=== PATIENT | female | born 1965 | race Caucasian/White ===

== ENCOUNTER → 2018-04-18 16:10 | Outpatient (CLI) | payer OTHER, SELFPAY ==
[2018-04-18 07:24] LABS: ALB/GLOB Ratio 1.1 RATIO (0.9-2.4); AST(SGOT) 17 U/L (15-37); Alanine Aminotransfer ALT/SGPT 21 U/L (13-56); Albumin, Serum 3.7 g/dL (3.2-5.0); Alkaline Phosphatase 72 U/L (45-117); Anion Gap 9 (5-15); BUN 17 mg/dL (7-18); BUN/Creat Ratio 20.4 RATIO (10-20); Calcium,Total 8.4 mg/dL (8.5-10.1); Chloride 109 mmol/L (98-107); Cholesterol 196 mg/dL (200); Creatinine, Serum 0.84 mg/dL (0.55-1.02); EST Glomerular Filtration Rate 76 mL/min (>60); Est Glom Filt Rate - Afr Amer 92 mL/min (>60); Globulin 3.4 g/dL (2.2-4.2); Glucose 92 mg/dL (74-106); High Density Lipoprotein 68 mg/dL; Potassium 4.1 mmol/L (3.5-5.1); Protein, Total 7.1 g/dL (6.4-8.2); Sodium Level 142 mmol/L (136-145); Triglycerides 69 mg/dL; Very Low Density Lipoprotein 14 mg/dL (5-40)
--- OUTSIDE RECORDS SUMMARY | 2018-06-30 00:10 | XMS RPT_ITS ---
:1965 Author Organization OHIP Care Team Providers Name Role Phone Chavo Green Attending Unavailable LOKI OVALLES Referring Unavailable LOKI OVALLES Primary Care Unavailable Neena Pritchett Attending Unavailable Neena Pritchett Referring Unavailable LOKI OVALLES Primary Care Unavailable PROBLEMS PROBLEMS DATE TYPE CONDITION / CODE ATTENDING STATUS SOURCE 05/06/2018 Unknown Z00.00 - Neena Pritchett Active [facility] Encounter for [facility] medical Repository examination without abnormal findings / Z00.00(ICD-10) PROCEDURES PROCEDURES No Procedure Records FoundRESULTS RESULTS COMPREHENSIVE METABOLIC Collected: 04/18/2018 Status: F Source: [facility]MUKH PROFIL 6:45 AM [facility] RE[facility] Order Comment: PT DRAWN ON ICU FLOOR. TYPE CODE TESTS RESULT OUT OF RANGE REFERENCE UNITS LAB L501.0100 74-106 mg/dL Normal GLU 92 Result Comment: Please note revised GLUCOSE reference range effective 2017. LAB L501.1000 7-18 mg/dL Normal BUN 17 LAB L501.1100 0.55-1.02 mg/dL Normal CREAT,SERUM 0.84 Result Comment: The validity of the calculated GFR AND GFRAA in patients over 70 years has not been determined. Clinical correlation is essential. LAB L501.1110 >60 mL/min Normal EST GFR 76 Result Comment: Non- GFR Calc LAB L501.1115 >60 mL/min Normal EST GFR - AA 92 Result Comment: GFR Calc LAB L501.1300 10-20 RATIO High BUN/CRE 20.4 LAB L501.1500 6.4-8.2 g/dL T Normal PROT 7.1 LAB L501.1800 3.2-5.0 g/dL Normal ALB 3.7 LAB L501.1950 2.2-4.2 g/dL Normal GLOB 3.4 LAB L501.2000 0.9-2.4 RATIO Normal A/G 1.1 LAB L501.2200 8.5-10.1 mg/dL Low CA 8.4 LAB L501.4100 15-37 U/L Normal AST 17 LAB L501.4305 45-117 U/L Normal ALK P 72 LAB L501.4405 13-56 U/L Normal ALT 21 LAB L501.4600 0.20-1.00 mg/dL T Normal BILI 0.30 LAB L501.5300 136-145 mmol/L NA Normal 142 LAB L501.5600 3.5-5.1 mmol/L K Normal 4.1 LAB L501.5900 98-107 mmol/L High CL 109 LAB L501.6100 21.0-32.0 mmol/L Normal CO2 24.0 LAB L501.6200 5-15 Normal GAP 9 Performed By: #### L500.4050, L500.4100 #### [facility] [address] [place], [place], [address] LIPID PROFILE Collected: 04/18/2018 Status: F Source: [place] 6:45 AM [facility] RE[facility] Order Comment: PT DRAWN ON ICU FLOOR. TYPE CODE TESTS RESULT OUT OF RANGE REFERENCE UNITS LAB L501.4900 200 mg/dL Normal CHOL 196 Result Comment: <200 mg/dL Desirable 200-240 mg/dL Borderline >240 mg/dL High Risk LAB L501.5000 mg/dL Normal TRIG 69 Result Comment: The drugs N-Acetylcysteine and Metamizole may falsely depress this assay. Serum Triglycerides Reference Interval Normal <150 mg/dL Borderline high 150 - 199 mg/dL High 200 - 499 mg/dL Very High > or = 500 mg/dL LAB L501.6400 mg/dL Normal HDL 68 Result Comment: The drugs N-Acetylcysteine and Metamizole may falsely depress this assay. Reference Range HDL <40 mg/dL Low HDL Cholesterol HDL >or= 60 mg/dL High HDL Cholesterol LAB L501.6500 0-130 mg/dL Normal LDL 114 LAB L501.6600 5-40 mg/dL Normal VLDL 14 Performed By: #### L500.4050, L500.4100 #### [facility] [address] [place], [place], [address] URGENT CARE VISIT Observed: 02/13/2018 Status: F Source: [place] REPORT 8:36 AM [facility] [address] [place] [address] [address] [place], [place] [address] OFFICE VISIT Date of Service: 02/12/18 MR#: [id number] Acct: [id number] Name: KEVIN AVENDAÑO Rep #: [id number] : 1965 Provider: Chavo CAMARENA Age/Sex: 52/F Location: [facility] [place] Status: Signed Intake Vital Signs02/12/18 Height 5 ft 2 in Intake Visit Reasons: EAR INFECTION Allergies No Known Allergies Allergy (Verified 04/11/17 12:38) narcotics and benzos Adverse Reaction (Uncoded 02/12/18 16:16) Other Medications escitalopram 5 mg tablet 5 mg PO DAILY 02/12/18 [History Confirmed 02/12/18] losartan 25 mg tablet 25 mg PO DAILY 02/12/18 [History Confirmed 02/12/18] meclizine 25 mg tablet 25 mg PO BID-TID PRN #30 tab 02/12/18 [Rx Confirmed 02/12/18] PFSH Medical History Back pain (Acute) Difficulty balancing (Acute) Seasonal allergies (Acute) HTN (hypertension) (Chronic) Surgical History History of bilateral carpal tunnel release (Acute) History of exploratory laparotomy (Acute) History of laparoscopic cholecystectomy (Acute) History of tubal ligation (Acute) Hx of appendectomy (Acute) Hx of section (Acute) Hx of foot surgery (Acute) Family History Other CAD (coronary artery disease) Hypertension Social History Smoking Status: Never smoker alcohol intake: current alcohol intake frequency: a few times a month Alcohol type: wine HPI HPI Details: KEVIN AVENDAÑO, is a 52 F who presents to the office today for complaint of left ear being full and concern for possible inner ear infection. Patient states that she has had dizziness for the past 24 hours which is similar to when she had an inner ear infection approximately 1 year ago. She states that the dizziness is dependent upon position with sitting up straight being the most comfortable position. She states that as long she sits up straight she has no dizziness however needed her to bring her here today due to that it dizziness. She does report some nausea related to the dizziness however denies any vomiting or diarrhea. She has had no fever, chills, sweats. No ear pain or otorrhea. No other associated symptoms or alleviating/aggravating factors. ROS Const Constitutional: No chills, fever(s), fatigue, abnormal sleep pattern, frequent falls, weakness or headache(s) Eyes Eyes: No blurry vision, change in vision, visual disturbances or tunnel vision ENT ENT: No headache(s) Resp Respiratory: No shortness of breath or chest congestion Cardio Cardiology: No chest pain at rest, chest pain with exertion or shortness of breath Musc Musculoskeletal: No abnormal walking, tingling or numbness Skin Skin: No wounds or lesions Neuro Neurology: Positive for unsteady gait/balance and dizziness; no behavioral changes, confusion, frequent falls, visual disturbances, abnormal walking, abnormal movements, weakness, headache(s), lack of coordination, tingling, fainting or numbness Psych Psychiatric: No behavioral changes, No confusion, No abnormal sleep pattern Endo Endocrine: No fatigue Exam Const General: cooperative, healthy appearing [facility] Head: normocephalic, atraumatic Ears: hearing grossly normal bilaterally Nose: external nose normal Face and sinus: face symmetric, normal facial exam Mouth: oral mucosae normal Throat: posterior oropharynx normal Eyes General: appearance normal, both eyes and all related structures Pupils: PERRL Resp Effort AND Inspection: normal respiratory effort Auscultation: Bilateral: Clear to Auscultation Cardio Palpation: normal PMI Rate: regular rate Rhythm: regular rhythm Skin General: no rashes or lesions noted Neuro General: alert, CN's II-XI intact bilaterally, tone normal Cognition: normal cognition Speech: speech normal Motor: muscle tone normal throughout, strength 5/5 throughout Sensory Exam: no sensory deficits noted Other: Patient unable to change position without feeling nausea and vertigo. Psych Appearance: grossly normal Mental Status: mental status grossly normal Assessment AND Plan Problems 1. Vertigo R42 Status Acute Plan Meclizine as prescribed today. Patient advised to have follow- up with her PCP in the next 5-7 days. Patient advised of potential red flags and when appropriate report to the ED. Patient verbalized understanding of all the above. Medications New: Discontinued: promethazine Discontinued Reason: Pt no 25 mg PO Q6H PRN PRN Nausea Michaelle Zavala longer taking Coding Level of Care Code Off vis,new,level 3 Diagnoses Vertigo R42 02/13/18 0836 <Electronically signed by Chavo CAMARENA> Date Chavo CAMARENA Cosigner Signature: Date (if applicable) CC: ALLERGIES ALLERGIES DATE TYPE / CODE NAME / CODE REACTION SEVERITY SOURCE 02/12/2018 Miscellaneous narcotics and Other Unknown [id number] [place] 04/11/2017 Drug No Known Unknown [facility]mukh Allergy/[id number](S Allergies/F0019 [facility]) 00516(RXNORM) Hospital Repository ENCOUNTERS ENCOUNTERS ADMIT/DISCHARGE ACCOUNT ADMITTING ENCOUNTER LOCATION SOURCE NUMBER CLASS 04/18/2018 [id number] [place] [facility] ing:LAB Repository 02/12/2018/ [id number] Ambulatory BMS[place] [address] [place].NOW [facility] Repository PAYERS PAYERS ENCOUNTER GUARANTOR PAYER SUBSCRIBER SOURCE 04/18/2018 ANÍBAL Castelan Primary Insurance:SHEBA AVENDAÑO6567 KRISTINE [id number] TORRESB: [facility] Number: [id number], [place] [id number] Repository [address]Dnv: (330) Date:3218-28-09LE [phone] () [address] [place] [phone]: 04/18/2018 Secondary NOT GIVENUNK Hasmukh Insurance:SELF PAY [facility] Number: Effective Repository Date:2018-04-17 02/12/2018 Aníbal Primary Insurance:[facility] Aníbal Avendaño[address] [facility] [id number] LenardB: [facility] Number: [id number], [place] [id number] Repository [address]Dej: (330) Date:6831-28-38CR [phone] () [address], [place] [address]ST: 02/12/2018 Secondary NOT GIVENUNK [place] Insurance:SELF PAY [facility] Number: Effective Repository Date:2018-02-12
== END ==
PROVIDERS: Family Provider Family Medicine; PCP Family Medicine; Referring Provider Nurse Practitioner Family; Visit Provider Nurse Practitioner Family
DX: Z00.00 Encounter for general adult medical examination without abnormal findings (principal)
CPT/HCPCS: 80053; 80061

== ENCOUNTER 2018-06-13 18:12 | Emergency (ER) | payer OTHER, SELFPAY ==
[2018-06-13 18:13] VITALS: BP 130/82; PULSE 90; RESP 16; TEMP 36.4; O2SAT 99; BMI 27.6
[2018-06-13] MEDS: Amox/Clavulanate 875 MG Tablet PO (19:09)
--- NOTE | 2018-06-13 19:44 | ED.DCSUM_ITS ---
- ER Visit Summary Date of Service: 06/13/18 Chief Complaint: Left hand dog bite History of Present Illness: The patient is a 53 F who is right-hand dominant. She was bitten by a small dog that she is dog sitting on the left hand after the dog had escaped from the house. She has multiple small lacerations of the left hand and fingers. Tetanus is up-to-date. Physical Examination: Vital signs unremarkable. Patient sitting in a bedside chair. Left upper extremity examination reveals multiple small puncture wounds to left hand. There is a 2 cm flap laceration of the left fourth finger at the PIP joint. Full range of motion is noted with normal sensation distally. Test Results: [] Emergency Department Course and Treatment: Patient is given p.o. Augmentin. The laceration on the left fourth finger will require some suture. Digital block is performed with 3 cc of 1% lidocaine. Wound is thoroughly cleansed and irrigated. 3 simple interrupted sutures of 5-0 nylon are placed for approximation. I did discuss with the patient that we do not suture these tightly so as not to worsen infection. She will be given 3 days of Augmentin at home. Treatment Plan: [] Disposition: Discharge Impression: 1. Dog bite left hand 2. Left fourth finger laceration status post suture This note was generated with [employer] dictation software. It may contain incorrect words, spelling, and punctuation that were not noted in review of the chart prior to signing ED Disposition - Plan for ED Patient: Chief Complaint: Bite Referrals: Alejo Verde MD [Primary Care Provider] -
--- NOTE | 2018-06-13 19:44 | ED.DEP ---
ED Disposition - Plan for ED Patient: Disposition: Home or Assisted Living Chief Complaint: Bite Instructions: ED Bite Dog Prescriptions: Amox/Clavulanate Tablet [Augmentin Tablet] 875 mg PO Q12H #6 tablet Referrals: Alejo Verde MD [Primary Care Provider] - 7 Days for suture removal
== END 2018-06-13 20:07 | disposition home or self-care (01) ==
PROVIDERS: Emergency Provider Emergency Medicine; Family Provider Family Medicine; PCP Family Medicine
DX: S60.475A Other superficial bite of left ring finger, initial encounter (principal); S60.572A Other superficial bite of hand of left hand, initial encounter; W54.0XXA Bitten by dog, initial encounter; Y93.89 Activity, other specified; Y92.009 Unspecified place in unspecified non-institutional (private) residence as the place of occurrence of the external cause; Y99.8 Other external cause status; I10 Essential (primary) hypertension
CPT/HCPCS: 12001; 99283

== ENCOUNTER → 2019-01-09 | Outpatient (CLI) | payer OTHER, SELFPAY ==
[2019-01-04 13:07] VITALS: BMI 27.6
== END | disposition home or self-care (01) ==
PROVIDERS: Family Provider Family Medicine; PCP Family Medicine; Referring Provider Internal Medicine; Visit Provider Internal Medicine
DX: J32.9 Chronic sinusitis, unspecified (principal)
CPT/HCPCS: 87070; 87077; 87186; 87205

== ENCOUNTER → 2019-03-29 06:27 | Outpatient (CLI) | payer OTHER, SELFPAY ==
[2019-01-04 13:07] VITALS: BMI 27.6
[2019-03-29 08:27] LABS: Hematocrit 40.4 % (37-47); Mean Corp Hgb Conc 32.2 g/dL (32-36); Mean Corpuscular Hgb 30.3 pg (27.0-32.0); Mean Corpuscular Volume 94.2 fL (81-99); Mean Platelet Vol. 10.8 fl (6.2-12.0); Platelet Count 238 K/mm3 (150-450); RBC Distribution Width CV 13.1 % (11.6-14.6); Red Blood Count 4.29 M/mm3 (4.2-5.4); White Blood Count 4.6 K/mm3 (4.4-11.0)
[2019-03-29 09:07] LABS: ALB/GLOB Ratio 1.1 RATIO (0.9-2.4); AST(SGOT) 16 U/L (15-37); Alanine Aminotransfer ALT/SGPT 26 U/L (13-56); Albumin, Serum 3.8 g/dL (3.2-5.0); Alkaline Phosphatase 64 U/L (45-117); Anion Gap 5 (5-15); BUN 15 mg/dL (7-18); BUN/Creat Ratio 15.4 RATIO (10-20); Calcium,Total 8.4 mg/dL (8.5-10.1); Chloride 106 mmol/L (98-107); Cholesterol 214 mg/dL (200); Creatinine, Serum 0.97 mg/dL (0.55-1.02); EST Glomerular Filtration Rate 64 mL/min (>60); Est Glom Filt Rate - Afr Amer 77 mL/min (>60); Globulin 3.4 g/dL (2.2-4.2); Glucose 81 mg/dL (74-106); High Density Lipoprotein 65 mg/dL; Potassium 3.8 mmol/L (3.5-5.1); Protein, Total 7.2 g/dL (6.4-8.2); Sodium Level 139 mmol/L (136-145); Thyroid Stim Hormone (TSH) 3.19 uIU/mL (0.358-3.74); Triglycerides 79 mg/dL; Very Low Density Lipoprotein 16 mg/dL (5-40)
== END ==
PROVIDERS: Family Provider Family Medicine; PCP Family Medicine; Referring Provider Nurse Practitioner Family; Visit Provider Nurse Practitioner Family
DX: Z00.00 Encounter for general adult medical examination without abnormal findings (principal); R63.5 Abnormal weight gain
CPT/HCPCS: 36415; 80053; 80061; 84443; 85027

== ENCOUNTER → 2019-04-08 06:31 | Outpatient (CLI) | payer OTHER, SELFPAY ==
[2019-01-04 13:07] VITALS: BMI 27.6
--- NOTE | 2019-04-08 10:30 | STRESSREP ---
Stress Test Report Exercise myocardial perfusion stress test. 54-year-old lady with a history of hypertension and chest pain. Stress protocol: Resting EKG demonstrates normal sinus rhythm with a rate of 67 bpm normal intervals are noted resting blood pressures 122/84 mmHg. The patient exercised according to regular Terell protocol for total duration of 7 minutes and 15 seconds. The maximum heart rate attained was 166 bpm which was 99% of maximum predicted heart rate the maximum workload was 8.9 metabolic equivalents. The patient completed 1 minute and 15 seconds into stage III of the Terell protocol. At rest there were no ST or T wave changes noted suggest ischemia peak exercise upsloping ST changes were noted with no meet the criteria for ischemia. No clinical angina was noted. The resting blood pressures 122/84 with a peak blood pressure 142/88. Myocardial perfusion protocol. 11.0 mCi of technetium 99m sestamibi was injected at rest. The patient exercised according to regular Terell protocol for 7 minutes and 15 seconds at peak exercise 35.0 mCi of technetium 99m sestamibi was injected stress images were obtained stress and rest images are reconstructed in comparing the short axis vertical and horizontal long axis. Gated images were also obtained Perfusion SPECT analysis: Review of the stress images demonstrate normal uptake of tracer noted in all areas of the myocardium. The resting images similar demonstrate normal uptake of tracer noted in all areas of myocardium no areas of reversibility are noted suggest ischemia no previous infarct is noted. Gated SPECT analysis: The gated ejection fraction is noted to be 87%. Conclusion: Normal exercise myocardial perfusion stress test at a moderate to high workload. Good functional capacity. Preserved ejection fraction.
== END ==
PROVIDERS: Family Provider Family Medicine; PCP Family Medicine; Referring Provider Nurse Practitioner Family; Visit Provider Nurse Practitioner Family
DX: R06.00 Dyspnea, unspecified (principal); R07.89 Other chest pain
CPT/HCPCS: 78452; 93017; A9500; A4216

== ENCOUNTER → 2019-04-22 06:34 | Outpatient (CLI) | payer OTHER, SELFPAY ==
[2019-01-04 13:07] VITALS: BMI 27.6
--- NOTE | 2019-04-22 06:35 | CT_ITS ---
STUDY: CT CHEST WITHOUT CONTRAST REASON FOR EXAM: Female, 54 years old. Intermittent chest pressure and shortness of breath. RADIATION DOSAGE (If Supplied By Facility): CTDIvol = ( 7.74 ) mGy, DLP = ( 282.27 ) mGycm TECHNIQUE: Transaxial imaging was performed without the administration of intravenous contrast material. Multiplanar coronal and sagittal images were reformatted. Individualized dose optimization techniques were used for this CT. COMPARISON: None. FINDINGS: The lungs are normal. There is no demonstrated pleural abnormality. There is a small pericardial effusion. Normal mediastinum. Normal hilar regions. Normal unenhanced pulmonary arteries. Normal aorta arch and descending thoracic aorta. Normal osseous structures. Small hiatal hernia. Scattered small hepatic cysts. Status post cholecystectomy. CT/Chest without Contrast IMPRESSION: Small pericardial effusion. Electronically Signed: Jung Manrique, at 9:11 EST , Service support ,
== END ==
PROVIDERS: Family Provider Family Medicine; PCP Family Medicine; Referring Provider Nurse Practitioner Family; Visit Provider Nurse Practitioner Family
DX: I31.3 Pericardial effusion (noninflammatory) (principal); R07.9 Chest pain, unspecified
CPT/HCPCS: 71250

== ENCOUNTER → 2019-07-17 09:54 | Outpatient (CLI) | payer OTHER, SELFPAY ==
[2019-07-04 13:49] VITALS: BMI 27.3
--- NOTE | 2019-07-17 09:55 | ECHOD_ITS ---
Reason For Study: CHEST PAIN Procedure This was a 2D Doppler, Color Flow transthoracic echocardiogram. The exam was of adequate technical quality. Exam performed in department. Left Ventricle Normal LV size. Left ventricular systolic function is normal. The estimated ejection fraction is 65 %. No evidence for diastolic dysfunction. No regional wall motion abnormalities noted. Right Ventricle Normal RV size. Normal systolic function. Atria Normal left atrium. Normal right atrium. No doppler evidence for ASD. Mitral Valve There is no mitral annular calcification. Normal mitral valve. Trivial mitral valve insufficiency. Tricuspid Valve Normal tricuspid valve. Trivial tricuspid valve insufficiency. Aortic Valve Trisinus/trileaflet aortic valve. Normal aortic valve. Pulmonic Valve The pulmonic valve is not well visualized. Great Vessels Normal sized aortic root. Pericardium/Pleural No pericardial effusion. MMode/2D Measurements & Calculations LVIDd: 3.9 cm IVSd: 0.87 cm Ao root diam: 2.8 cm LVIDs: 2.4 cm LVPWd: 0.90 cm RVDd: 2.8 cm FS: 38.8 % LAV(MOD-bp): 37.8 ml LA A4 area: 14.7 cm2 LA dimension(2D): 2.8 cm LAV(MOD-bp) Indexed: 22.8 ml/m2 LAV(MOD-sp2): 37.7 ml LAV(MOD-sp4): 37.3 ml RA A4 area: 13.4 cm2 Time Measurements MV dec time: 0.16 sec Doppler Measurements & Calculations MV E max long: 112.8 cm/sec Lat Peak E' Long: 10.5 cm/sec Med Peak E' Long: 12.9 cm/sec MV A max logn: 95.0 cm/sec E/E' lat: 10.7 E/E' med: 8.7 MV E/A: 1.2 Ao V2 max: 119.4 cm/sec LV V1 max: 106.1 cm/sec PA V2 max: 89.2 cm/sec Ao max P.7 mmHg LV V1 max P.5 mmHg Interpretation Summary Left ventricular systolic function is normal. The estimated ejection fraction is 65 %. Trivial mitral valve insufficiency. Trivial tricuspid valve insufficiency. No evidence for diastolic dysfunction. Ordering Physician: Calderon Spears Referring Physician: Alejo Verde Performed By: Renuka Rowland, VALERI, RVT
== END ==
PROVIDERS: PCP Family Medicine; Referring Provider Internal Medicine Cardiovascular Disease; Visit Provider Internal Medicine Cardiovascular Disease
DX: I31.3 Pericardial effusion (noninflammatory) (principal); R07.2 Precordial pain; R06.02 Shortness of breath; R00.2 Palpitations; I10 Essential (primary) hypertension
CPT/HCPCS: 93306

== ENCOUNTER → 2019-07-19 12:15 | Outpatient (CLI) | payer OTHER, SELFPAY ==
[2019-07-04 13:49] VITALS: BMI 27.3
[2019-07-19] VITALS (12 sets, daily range): BP systolic 84–131; BP diastolic 40–88; PULSE 56–67; RESP 14–16; O2SAT 98–100; BMI 27.3
--- NOTE | 2019-07-19 12:37 | CT_ITS ---
STUDY: CARDIAC CALCIUM SCORING - CT CHEST REASON FOR EXAM: Female, 54 years old. Pericardial pain, SOB, palpitations. Limited CT Chest over-read ONLY. RADIATION DOSAGE (If Supplied By Facility): CTDIvol = ( 26.03 ) mGy, DLP = (195) mGycm TECHNIQUE: Axial non-enhanced images were acquired through the heart for the sole purpose of measuring coronary artery calcium. Individualized dose optimization techniques were used for this CT. COMPARISON: None. FINDINGS: Total Calcium Score: 10 There is small amount of calcified plaque in the LAD proximally. Cardiac chambers are normal in size and shape. Lungs are clear. IMPRESSION: A Calcium Score of 10 places the patient in the approximate 75th percentile, based on the PIERCE calculator. Mildly elevated future risk of adverse cardiovascular events, estimated at 5-15% over the next 10 years. Cardiovascular risk factor management is advised. Please go to: [email or web address]/input.aspx , for a description of the calculator. Electronically Signed: Shellie Mayfield, at 14:53 EST Tel , Service support , STUDY: Cardiac CTA with IV contrast. REASON FOR EXAM: Female, 54 years old. Pericardial pain, shortness of breath, palpitations. RADIATION DOSAGE (If Supplied By Facility): CTDIvol = ( 26.03 ) mGy, DLP = (885) mGycm TECHNIQUE: Axial non-enhanced images were acquired through the heart for the sole purpose of measuring coronary artery calcium. Individualized dose optimization techniques were used for this CT. COMPARISON: 08 April 2019 FINDINGS: Coronary arteries have normal origins with a right dominant system. There is minimal calcific plaque in the proximal LAD without stenosis. Coronary arteries are patent. Aorta and pulmonary artery are of normal caliber. Left atrial appendage is clear. Cardiac chambers are normal in size and shape. Pericardium is normal. Left ventricular systolic function is normal with ejection fraction of 55-60%. Limited visualized portions of the lungs are clear. There is no pulmonary edema or pleural effusions. There are presumed hepatic cysts, incompletely characterized. Osseous structures are intact. CT/Limited Chest CT w/CCTA IMPRESSION: 1. Patent coronary arteries. 2. Mild coronary atherosclerosis. 3. Normal cardiac anatomy. 4. Normal left ventricular systolic function. 5. Possible hepatic cysts, refer to ultrasonography for confirmation. Please go to: [email or web address]/input.aspx , for a description of the calculator. Electronically Signed: Shellie Mayfield, at 14:57 EST Tel , Service support ,
[2019-07-19] MEDS: Nitroglycerin SL (ED/IMG/CATH) 0.4 MG TABLET SUBLINGUAL (13:04)
--- NOTE | 2019-07-19 13:13 | NURSING ---
IMMEDIATELY POST CARDIAC CTA PT FEELING NAUSEATED AND PASS-OUTY PT KEPT FLAT AND TRANSFERRED TO RADIOLOGY STRETCHER. BP 84/40, HR 57, RESP 16, SPO2 98% ON ROOM AIR. DR. العراقي'S OFFICE CALLED AND DANIEL GLORIA SPOKE WITH DANIEL ANGUIANO AND THEN JUDITH. DANIEL GLORIA DESCRIBED PT'S B/P RISING 5 MINUTES AFTER 84/40 PRESSURE, PT'S B/P READS 97/42, HR 58, RESP 16, SPO2 98%. PT STARTING TO FEEL BETTER.
--- NOTE | 2019-07-19 14:06 | NURSING ---
STANDING BP AT 1355 OF 116/88, PT FEELING MUCH BETTER, ASSISTED WALKING WITH TO RESTROOM. PT FEELS SHE'S ABLE TO GO HOME WITH HER . PT ASSISTED TO VEHICLE VIA WHEELCHAIR BY REYMUNDO OLIVEIRA.
--- NOTE | 2019-07-22 19:53 | CA.SCORE ---
Calcium Scoring Date of Study:: 07/19/19 Coronary Calcium Scoring: High-resolution Computed Tomographic imaging of the chest was performed on 07/19/2019 with particular attention paid to the coronary arteries. Images from the examination were analyzed for the presence and extent of coronary artery calcification , using coronary calcium quantification software. The patient tolerated the procedure well and there were no complications. The results of the coronary calcification analysis are provided below. - Findings Left Main (LM): 0 Left Anterior Descending (LAD): 0 Left Circumflex (LCX): 0 Right Coronary Artery (RCA): 0 Total Agatston Score: 0 Percentile Ranking: Percentile rankin%: According to pre-published reference tables 50% of the people of the same gender/similar age had the same/lower scores Calcium Scoring Interpretation: 0 No identifiable atherosclerotic plaque. Very low cardiovascular disease risk. <5% chance of presence coronary artery disease A Negative Examination 1-10 Minimal Plaque burden. Significant coronary artery disease very unlikely. 11-100 Mild plaque burden. Likely mild or minimal coronary atherosclerosis. 101-400 Moderate plaque burden Moderate non-obstructive coronary artery disease highly likely. Over 400 Extensive plaque burden. High likelihood of at least one significant coronary stenosis (>50% diameter) Calcium Score: 0 Negative Examination - Continue cardiovascular risk factor evaluation and care as deemed appropriate
--- NOTE | 2019-07-22 19:55 | CCTA_ITS ---
CCTA w/Cont Coronary Arteries Date of Study:: 07/19/19 Chest pain Consent:: Per patient The patient underwent high-resolution CT imaging of the chest on 07-19-2019 with attention to the coronary arteries. The images were subsequently analyzed for the presence and extent of coronary artery calcification using coronary calcium quantification software. The patient was reported as tolerating the procedure well with no obvious complications. LEFT MAIN CORONARY ARTERY: The left main coronary artery appears to be a large vessel giving rise to the left anterior descending and left circumflex coronary arteries. The left main coronary artery system appears to be patent and it does not appear to demonstrate any angiographically significant appearing disease. LEFT ANTERIOR DESCENDING CORONARY ARTERY: The left anterior descending coronary artery appears to be a large vessel giving rise to septal perforators and diagonal branches. The LAD system appears to be patent and does not appear to demonstrate any angiographically significant appearing disease. LEFT CIRCUMFLEX CORONARY ARTERY: The left circumflex coronary artery appears to be a large vessel giving rise to obtuse marginal branches. The LCx system appears to be patent and does not appear to demonstrate any angiographically significant appearing disease. RIGHT CORONARY ARTERY: The right coronary artery appears to be a large dominant vessel. It appears to be patent and does not appear to demonstrate any angiographically significant appearing disease. THORACIC AORTA: The thoracic aorta appears to be patent with no obvious angiographically significant appearing disease. PULMONARY ARTERY: The main pulmonary artery and right and left pulmonary arteries appear to be patent with no obvious filling defects. LEFT ATRIUM/APPENDAGE: The left atrial appendage not appear to demonstrate any obvious filling defects. MITRAL VALVE: The mitral valve appears to be a bileaflet valve. AORTIC VALVE: The aortic valve appears to be a trileaflet valve. LEFT VENTRICLE: The left ventricle demonstrates grossly normal left ventricular size, wall mot ion, and systolic function with a reported LVEF of 54%. CORONARY CALCIUM SCORE: The coronary calcium score is reported at 0. Based upon pre-published reference tables a coronary calcium score of 0 would be indicative of a very low cardiovascular risk and a less than 5% chance of coronary artery disease. This note was generated using a voice recognition system and there may be incorrect words, spelling or punctuation that were not noted when reviewing the office note prior to saving.
== END ==
LOC: CT 12:15
PROVIDERS: PCP Family Medicine; Referring Provider Internal Medicine Cardiovascular Disease; Visit Provider Internal Medicine Cardiovascular Disease
DX: R07.2 Precordial pain (principal)
CPT/HCPCS: 75571; 75574; 76380; Q9967; A4216

== ENCOUNTER 2020-07-22 16:48 | Outpatient (RCR) | payer OTHER, SELFPAY ==
[2020-03-07 12:26] VITALS: BMI 26.9
== END 2020-08-02 23:59 ==
LOC: EMPH 16:48
PROVIDERS: PCP Family Medicine; Referring Provider Family Medicine Geriatric Medicine; Visit Provider Family Medicine Geriatric Medicine
DX: Z03.818 Encounter for observation for suspected exposure to other biological agents ruled out (principal)
CPT/HCPCS: 87426

== ENCOUNTER → 2021-03-11 05:39 | Outpatient (CLI) | payer OTHER, SELFPAY ==
[2021-03-11 09:54] LABS: Hematocrit 40.1 % (37-47); Mean Corp Hgb Conc 32.4 g/dL (32-36); Mean Corpuscular Hgb 30.4 pg (27.0-32.0); Mean Corpuscular Volume 93.7 fL (81-99); Mean Platelet Vol. 10.9 fl (6.2-12.0); Platelet Count 235 K/mm3 (150-450); RBC Distribution Width CV 13.1 % (11.6-14.6); RBC Distribution Width SD 44.9 fl (35.1-43.9); Red Blood Count 4.28 M/mm3 (4.2-5.4); White Blood Count 5.8 K/mm3 (4.4-11.0)
[2021-03-11 10:02] LABS: Vitamin D,25 Hydroxy 26.4 ng/mL
[2021-03-11 10:41] LABS: ALB/GLOB Ratio 1.1 RATIO (0.9-2.4); AST(SGOT) 18 U/L (15-37); Alanine Aminotransfer ALT/SGPT 20 U/L (13-56); Albumin, Serum 3.8 g/dL (3.2-5.0); Alkaline Phosphatase 76 U/L (45-117); Anion Gap 7 (5-15); BUN 18 mg/dL (7-18); Calcium,Total 9.1 mg/dL (8.5-10.1); Chloride 106 mmol/L (98-107); Cholesterol 205 mg/dL (200); EST Glomerular Filtration Rate 69 mL/min (>60); Est Glom Filt Rate - Afr Amer 84 mL/min (>60); Globulin 3.6 g/dL (2.2-4.2); Glucose 90 mg/dL (74-106); High Density Lipoprotein 68 mg/dL; Protein, Total 7.4 g/dL (6.4-8.2); Sodium Level 139 mmol/L (136-145); Thyroid Stim Hormone (TSH) 3.36 uIU/mL (0.358-3.74); Triglycerides 74 mg/dL; Very Low Density Lipoprotein 15 mg/dL (5-40)
== END ==
PROVIDERS: PCP Family Medicine; Referring Provider Family Medicine; Visit Provider Family Medicine
DX: Z00.00 Encounter for general adult medical examination without abnormal findings (principal); Z13.1 Encounter for screening for diabetes mellitus; I10 Essential (primary) hypertension; K21.9 Gastro-esophageal reflux disease without esophagitis
CPT/HCPCS: 80053; 80061; 82306; 84443; 85027

== ENCOUNTER → 2022-03-31 | Outpatient (CLI) | payer OTHER, SELFPAY ==
[2022-03-31 10:24] LABS: Hematocrit 41.2 % (37-47); Hemoglobin 13.8 g/dL (12.0-15.0); Mean Corp Hgb Conc 33.5 g/dL (32-36); Mean Corpuscular Hgb 31.1 pg (27.0-32.0); Mean Corpuscular Volume 92.8 fL (81-99); Mean Platelet Vol. 10.9 fl (6.2-12.0); Platelet Count 217 K/mm3 (150-450); RBC Distribution Width CV 12.8 % (11.6-14.6); Red Blood Count 4.44 M/mm3 (4.2-5.4); White Blood Count 4.7 K/mm3 (4.4-11.0)
[2022-03-31 11:29] LABS: Vitamin D,25 Hydroxy 54.5 ng/mL
[2022-03-31 11:58] LABS: AST(SGOT) 14 U/L (15-37); Alanine Aminotransfer ALT/SGPT 19 U/L (13-56); Albumin, Serum 3.6 g/dL (3.2-5.0); Alkaline Phosphatase 56 U/L (45-117); Anion Gap 4 (5-15); BUN 17 mg/dL (7-18); Calcium,Total 8.9 mg/dL (8.5-10.1); Chloride 107 mmol/L (98-107); Cholesterol 231 mg/dL (200); Creatinine, Serum 0.94 mg/dL (0.55-1.02); EST Glomerular Filtration Rate 65 mL/min (>60); Est Glom Filt Rate - Afr Amer 79 mL/min (>60); Globulin 3.5 g/dL (2.2-4.2); Glucose 93 mg/dL (74-106); High Density Lipoprotein 81 mg/dL; Potassium 3.9 mmol/L (3.5-5.1); Protein, Total 7.1 g/dL (6.4-8.2); Sodium Level 139 mmol/L (136-145); Thyroid Stim Hormone (TSH) 1.93 uIU/mL (0.358-3.74); Triglycerides 97 mg/dL; Very Low Density Lipoprotein 19 mg/dL (5-40)
== END | disposition home or self-care (01) ==
PROVIDERS: PCP Family Medicine; Referring Provider Nurse Practitioner Family; Visit Provider Nurse Practitioner Family
DX: Z13.1 Encounter for screening for diabetes mellitus (principal); Z13.0 Encounter for screening for diseases of the blood and blood-forming organs and certain disorders involving the immune mechanism; Z13.6 Encounter for screening for cardiovascular disorders; Z13.29 Encounter for screening for other suspected endocrine disorder; E55.9 Vitamin D deficiency, unspecified
CPT/HCPCS: 36415; 80053; 80061; 82306; 84443; 85027

== ENCOUNTER → 2022-05-04 | Outpatient (CLI) | payer OTHER, SELFPAY ==
--- NOTE | 2022-05-04 07:30 | BI_ITS ---
MAMMOGRAPHY - BILATERAL SCREENING REASON FOR EXAM: Female, 57 years old. Routine annual screening examination. PERTINENT HISTORY: Non-contributory. TECHNIQUE: Digital bilateral breast js (3D mammographic acquisition) in the CC and MLO projections. 2-D mediolateral oblique (MLO) and craniocaudad (CC) views of both breasts were obtained. CAD: Full Field Digital Mammography with Computer Added Detection was performed. COMPARISON: Comparison is made with prior study dated 05/23/2017. FINDINGS: Breast Composition: The breasts are heterogeneously dense, which may obscure small masses. There are no dominant masses or suspicious calcifications. Stable small benign-appearing bilateral axillary lymph nodes. No other significant abnormalities are identified. There has been no significant change since the prior study. BI/SCRN MAMM (CAD)W/SJ BILAT IMPRESSION: Stable bilateral screening mammogram. Yearly follow-up mammogram recommended. (A) ASSESSMENT CATEGORY: BIRADS Category 2: Benign. A letter regarding these results will be sent to the patient by the facility within 30 days. Approximately 10% of breast cancers are not detected by mammography. A normal mammogram should not delay biopsy of a clinically suspicious abnormality. [id number] Electronically Signed: Jung Manrique MD at 8:43 EST ,
== END | disposition home or self-care (01) ==
LOC: OPBI 07:29
PROVIDERS: PCP Family Medicine; Visit Provider Nurse Practitioner Family
DX: Z12.31 Encounter for screening mammogram for malignant neoplasm of breast (principal)
CPT/HCPCS: 77063; 77067

== ENCOUNTER → 2023-02-16 | Outpatient (CLI) | payer OTHER, SELFPAY ==
[2023-02-16 09:38] LABS: Hemoglobin 13.7 g/dL (12.0-15.0); Mean Corp Hgb Conc 31.9 g/dL (32-36); Mean Corpuscular Hgb 30.3 pg (27.0-32.0); Mean Corpuscular Volume 95.1 fL (81-99); Mean Platelet Vol. 10.2 fl (6.2-12.0); Platelet Count 237 K/mm3 (150-450); RBC Distribution Width CV 12.1 % (11.6-14.6); Red Blood Count 4.52 M/mm3 (4.2-5.4); White Blood Count 4.3 K/mm3 (4.4-11.0)
[2023-02-16 10:26] LABS: AST(SGOT) 17 U/L (15-37); Alanine Aminotransfer ALT/SGPT 22 U/L (13-56); Albumin, Serum 3.7 g/dL (3.2-5.0); Alkaline Phosphatase 61 U/L (45-117); Anion Gap 2 (5-15); BUN 15 mg/dL (7-18); BUN/Creat Ratio 15.3 RATIO (10-20); Chloride 106 mmol/L (98-107); Cholesterol 238 mg/dL (200); Creatinine, Serum 0.98 mg/dL (0.55-1.02); EST Glomerular Filtration Rate 62 mL/min (>60); Est Glom Filt Rate - Afr Amer 75 mL/min (>60); Globulin 3.7 g/dL (2.2-4.2); Glucose 92 mg/dL (74-106); High Density Lipoprotein 82 mg/dL; Potassium 4.1 mmol/L (3.5-5.1); Protein, Total 7.4 g/dL (6.4-8.2); Sodium Level 136 mmol/L (136-145); Thyroid Stim Hormone (TSH) 2.54 uIU/mL (0.358-3.74); Triglycerides 106 mg/dL; Very Low Density Lipoprotein 21 mg/dL (5-40)
[2023-02-16 10:43] LABS: Hemoglobin A1c 5.2 % (3.8-5.6)
== END | disposition home or self-care (01) ==
LOC: LAB 08:40
PROVIDERS: PCP Nurse Practitioner Family; Referring Provider Nurse Practitioner Family; Visit Provider Nurse Practitioner Family
DX: Z13.1 Encounter for screening for diabetes mellitus (principal); Z13.0 Encounter for screening for diseases of the blood and blood-forming organs and certain disorders involving the immune mechanism; Z13.6 Encounter for screening for cardiovascular disorders; Z13.29 Encounter for screening for other suspected endocrine disorder
CPT/HCPCS: 36415; 80053; 80061; 83036; 84443; 85027

== ENCOUNTER → 2023-05-16 | Outpatient (CLI) | payer OTHER, SELFPAY ==
--- NOTE | 2023-05-16 07:09 | BI_ITS ---
MAMMOGRAPHY - BILATERAL SCREENING REASON FOR EXAM: Female, 58 years old. Routine annual screening examination. PERTINENT HISTORY: Non-contributory. TECHNIQUE: Digital bilateral breast js (3D mammographic acquisition) in the CC and MLO projections. 2-D mediolateral oblique (MLO) and craniocaudad (CC) views of both breasts were obtained. CAD: Full Field Digital Mammography with Computer Added Detection was performed. COMPARISON: Comparison is made with prior study dated May 04, 2022 and May 23, 2017. FINDINGS: Breast Composition: The breasts are heterogeneously dense, which may obscure small masses. There are no dominant masses or suspicious calcifications. No other significant abnormalities are identified. There has been no significant change since the prior study. BI/SCRN MAMM (CAD)W/JS BILAT IMPRESSION: Stable bilateral screening mammogram. Yearly follow-up mammogram recommended. (A) ASSESSMENT CATEGORY: BIRADS Category 1: Negative. A letter regarding these results will be sent to the patient by the facility within 30 days. Approximately 10% of breast cancers are not detected by mammography. A normal mammogram should not delay biopsy of a clinically suspicious abnormality. [id number] Electronically Signed: Jung Manrique MD at 8:26 EST ,
== END | disposition home or self-care (01) ==
LOC: OPBI 07:07
PROVIDERS: PCP Nurse Practitioner Family; Referring Provider Nurse Practitioner Family; Visit Provider Nurse Practitioner Family
DX: Z12.31 Encounter for screening mammogram for malignant neoplasm of breast (principal)
CPT/HCPCS: 77063; 77067

== ENCOUNTER → 2024-04-11 | Outpatient (CLI) | payer OTHER, SELFPAY ==
[2024-04-11 09:12] LABS: ALB/GLOB Ratio 1.1 RATIO (0.9-2.4); AST(SGOT) 14 U/L (15-37); Alanine Aminotransfer ALT/SGPT 17 U/L (13-56); Albumin, Serum 3.5 g/dL (3.2-5.0); Alkaline Phosphatase 61 U/L (45-117); Anion Gap 4 (5-15); BUN 18 mg/dL (7-18); BUN/Creat Ratio 18.8 RATIO (10-20); Chloride 108 mmol/L (98-107); Cholesterol 214 mg/dL (200); Creatinine, Serum 0.96 mg/dL (0.55-1.02); EST Glomerular Filtration Rate 63 mL/min (>60); Est Glom Filt Rate - Afr Amer 77 mL/min (>60); Globulin 3.2 g/dL (2.2-4.2); Glucose 93 mg/dL (74-106); High Density Lipoprotein 76 mg/dL; Potassium 4.1 mmol/L (3.5-5.1); Protein, Total 6.7 g/dL (6.4-8.2); Sodium Level 139 mmol/L (136-145); Triglycerides 70 mg/dL; Very Low Density Lipoprotein 14 mg/dL (5-40)
[2024-04-11 11:00] LABS: Hemoglobin A1c 5.4 % (3.8-5.6)
== END | disposition home or self-care (01) ==
LOC: LAB 07:36
PROVIDERS: PCP Nurse Practitioner Family; Referring Provider Nurse Practitioner Family; Visit Provider Nurse Practitioner Family
DX: E55.9 Vitamin D deficiency, unspecified (principal); E78.5 Hyperlipidemia, unspecified; Z13.1 Encounter for screening for diabetes mellitus
CPT/HCPCS: 36415; 80053; 80061; 82306; 83036

== ENCOUNTER → 2024-05-17 | Outpatient (CLI) | payer OTHER, SELFPAY ==
--- NOTE | 2024-05-17 07:13 | BI_ITS ---
MAMMOGRAPHY - BILATERAL SCREENING REASON FOR EXAM: Female, 59 years old. Routine annual screening examination. PERTINENT HISTORY: Non-contributory. TECHNIQUE: Digital bilateral breast js (3D mammographic acquisition) in the CC and MLO projections. 2-D mediolateral oblique (MLO) and craniocaudad (CC) views of both breasts were obtained. CAD: Full Field Digital Mammography with Computer Added Detection was performed. COMPARISON: Comparison is made with prior study May 16, 2023 and May 04, 2022. FINDINGS: Breast Composition: The breasts are heterogeneously dense, which may obscure small masses. There are no dominant masses or suspicious calcifications. Stable small bilateral axillary lymph nodes. No other significant abnormalities are identified. There has been no significant change since the prior study. BI/SCRN MAMM (CAD)W/JS BILAT IMPRESSION: Stable bilateral screening mammogram. Yearly follow-up mammogram recommended. (A) ASSESSMENT CATEGORY: BIRADS Category 2: Benign. A letter regarding these results will be sent to the patient by the facility within 30 days. Approximately 10% of breast cancers are not detected by mammography. A normal mammogram should not delay biopsy of a clinically suspicious abnormality. [id number] Electronically Signed: Jung Manrique MD at 8:37 EST ,
== END | disposition home or self-care (01) ==
LOC: OPBI 07:12
PROVIDERS: PCP Nurse Practitioner Family; Referring Provider Nurse Practitioner Family; Visit Provider Nurse Practitioner Family
DX: Z12.31 Encounter for screening mammogram for malignant neoplasm of breast (principal)
CPT/HCPCS: 77063; 77067

== ENCOUNTER 2024-08-05 15:19 | Emergency (ER) | payer BC, SELFPAY ==
[2024-08-05 15:20] VITALS: BP 143/81; PULSE 108; RESP 16; TEMP 36.6; O2SAT 99
[2024-08-05 16:16] LABS: Absolute Lymphocyte Count 0.31 X10^3/uL (0.83-4.51); Absolute Neutrophil Count 6.9 X10^3/uL (2.0-7.7); Basophil# 0.03 X10^3/uL; Basophil% 0.4 % (0-1); Hematocrit 42.7 % (37-47); Hemoglobin 14.8 g/dL (12.0-15.0); Lymphocyte # 0.31 X10^3/ul (0.83-4.51); Lymphocyte % 4.1 % (19-41); Mean Corp Hgb Conc 34.7 g/dL (32-36); Mean Corpuscular Volume 89.3 fL (81-99); Mean Platelet Vol. 10.2 fl (6.2-12.0); Monocyte# 0.28 X10^3/uL; Monocyte% 3.7 % (0-10); NRBC Flagged by Analyzer 0 % (0-5); Neutrophil # 6.86 X10^3/uL (2.7-7.7); Neutrophil % 91.4 % (47-70); POSITIVE DIFFERENTIAL YES; Platelet Count 230 K/mm3 (150-450); RBC Distribution Width CV 12.5 % (11.6-14.6); RBC Distribution Width SD 41.2 fl (35.1-43.9); Red Blood Count 4.78 M/mm3 (4.2-5.4); White Blood Count 7.5 K/mm3 (4.4-11.0)
[2024-08-05 16:40] LABS: ALB/GLOB Ratio 1.5 RATIO (0.9-2.4); AST(SGOT) 27 U/L (<=31); Alanine Aminotransfer ALT/SGPT 19 U/L (<=34); Albumin, Serum 4.5 g/dL (3.5-5.0); Alkaline Phosphatase 60 U/L (35-104); BUN 18 mg/dL (4-19); BUN/Creat Ratio 22.3 RATIO (10-20); EST Glomerular Filtration Rate 85 (>60); Glucose 122 mg/dL (70-99); Lipase 18 U/L (13-75); Protein, Total 7.5 g/dL (5.9-8.4); Total Bilirubin 0.48 mg/dL (0.00-1.30)
[2024-08-05 17:38] VITALS: BP 116/78; PULSE 100; RESP 18; O2SAT 100
--- NOTE | 2024-08-05 17:40 | EX.ED.GENINJ ---
HPI History of Present Illness Chief Complaint: Abd Pain PFSH PFS Medical History Hot flashes HTN (hypertension) Chronic GERD Vitamin D deficiency Palpitations Precordial pain Hiatal hernia Pericardial effusion Essential (primary) hypertension Seasonal allergies Back pain Difficulty balancing Home Medications ?Medication ?Instructions ?Recorded ?Last Taken ?Type losartan 50 mg tablet 50 mg PO DAILY 07/04/19 Unknown History cholecalciferol (vitamin D3) 125 125 mcg PO DAILY 04/14/22 Unknown History mcg (5,000 unit) capsule pantoprazole 40 mg tablet,delayed 40 mg PO DAILY 04/14/22 Unknown History release conj estrogen-medroxyprogesterone 1 tab PO QDAY 10/20/23 Unknown History 0.625 mg-2.5 mg tablet (Prempro) Allergy/AdvReac Type Severity Reaction Status Date / Time morphine Allergy Intermediate Other Verified 08/05/24 15:20 Benzodiazepines AdvReac HYPERSENSIT Verified 08/05/24 15:20 IVITY Opioids - Morphine Analogues AdvReac HYPERSENSIT Verified 08/05/24 15:20 (narcotics) IVITY Family History Mother TIA (transient ischemic attack) Arthritis Other CAD (coronary artery disease) Hypertension Surgical History History of bilateral carpal tunnel release Hx of foot surgery Hx of section History of tubal ligation History of exploratory laparotomy Hx of appendectomy History of laparoscopic cholecystectomy Social History Smoking Status: Unknown if ever smoked alcohol intake: current alcohol intake frequency: a few times a month Alcohol type: wine substance use type: does not use caffeine: Yes Type: carbonated beverages and coffee Number of servings: 2 EXAM Physical Exam Const Vital Signs: 08/05/24 15:20 08/05/24 17:38 08/05/24 19:00 Temperature 97.9 F Temperature Source Temporal Pulse Rate 108 H 100 70 Respiratory Rate 16 18 16 Blood Pressure 143/81 H 116/78 124/84 H Blood Pressure Mean 101 90 97 Pulse Ox 99 100 98 Oxygen Delivery Method Room Air Room Air Room Air MDM MDM MDM Narrative Medical decision making narrative: HISTORY OF PRESENT ILLNESS: 59-year-old female presents with multiple complaints including severe abdominal pain, nausea vomiting diarrhea and headache. The patient further states headache is typical of started after vomiting. Notes diffuse abdominal pain. No blood in her vomit or diarrhea. Notes history of multiple abdominal surgeries Patient denies sudden onset or thunderclap headache, denies maximal intensity within 1 minute, vomiting, neck pain, stiffness, changes in vision, fever, history malignancy, syncope, or seizures associated with headache. REVIEW OF SYSTEMS: Pertinent positives: Abdominal pain, nausea vomiting diarrhea, headache Pertinent negatives: Blood in stool PHYSICAL EXAM: Nursing triage notes reviewed, Vital signs reviewed Constitutional: please see mdm HENT: MMM Eyes: Pupils equal round and reactive to light, Extraocular muscles intact Neck: No stridor, no JVD, full neck ROM Lungs: Clear to auscultation, No wheezing or rales. No increased work of breathing, no conversational dyspnea, no accessory muscle use, no nasal flaring. No respiratory distress noted Heart: Regular rate and rhythm, No murmurs, No rubs and No gallops, 2+ distal pulses (radial, femoral, posterior tibial) in all extremities Abdomen: Soft, there is no tenderness, rigidity, rebound or guarding, no obvious peritoneal signs, no palpable pulsatile abdominal masses, no auscultated abdominal bruit : No CVAT Extremities: No edema Neuro: Alert and oriented x3, neuro exam at baseline, cranial nerves II through XII are intact. No pain with extraocular muscle movement. There is negative test of skew. 5 of 5 strength in upper and lower extremities in flexion extension. Intact sensation to light touch in upper and lower extremity dermatomes. No truncal or extremity ataxia. No dysdiadochokinesia. Normal gait. 2+ reflexes in upper and lower extremities. No meningeal signs. Negative Babinski. NIH of 0. Skin: No rash or lesions noted MEDICAL DECISION MAKING: Chief Complaint: Abdominal pain, nausea vomiting diarrhea and headache External records reviewed: Reviewed prior imaging studies Factors affecting care: Hypertension Social determinants of health: none History obtained from others: none Consults: none [facility] Narrative: Patient was initially tachycardic otherwise afebrile and nontoxic-appearing. Abdominal exam overall benign. I considered the following differential diagnosis: AAA, small bowel obstruction, abdominal perforation, appendicitis, pancreatitis, hepatobiliary pathology (acute cholecystitis), mesenteric ischemia, pathology (ie nephrolithiasis, pyelonephritis). Triage orders were placed per protocol given poor departmental conditions including high volume and high acuity. Patient was initially seen in the hallway. She is then moved to bed 9. After evaluate the patient I added CT scan of the abdomen pelvis, 1 L IV fluid, 50 mg of IV Toradol and 4 mg IV Zofran. ALL IMAGES (IF OBTAINED) HAVE BEEN PERSONALLY REVIEWED AND INTERPRETED BY MYSELF. CBC without leukocytosis suggesting of no specific inflammation, no anemia or thrombocytopenia BMP without electrolyte reported, no sign of ROSEMARY, BNP was noted metabolic acidosis with a bicarb of 17.5, noted endorgan hypoperfusion with a anion gap of 17 LFTs without evidence of hepatobiliary pathology Lipase is wnl indicating no pancreatic inflammation. CT scan with no evidence of acute intra-abdominal pathology No clear life-limiting etiology ascertained. Upon reassessment patient heart rate improved without significant intervention to 70. Repeat abdominal exam benign. The patient and/or family, caregivers express understanding. The patient and/or family, caregivers agrees with the plan. Shared decision making: I will have a discussion with the patient and or visitors regarding risk/benefits of further testing or admission. They will be made aware of of the risk/benefits inherent in this decision they will be given the opportunity to voice understanding. Total critical care time today provided was at least 0 minutes. This excludes separately billable procedures. Critical care time (if documented) is secondary to the patient having high probability of clinically significant/life threatening deterioration in the patient's condition which required my urgent intervention. Impression: 1. Abdominal pain 2. Nausea vomiting diarrhea 3. Viral gastroenteritis Dispo: Discharge This note was generated with [employer] dictation software. It may contain incorrect words, spelling, and punctuation that were not noted in review of the chart prior to signing. Lab Data Labs: Laboratory Results - last 24 hr 08/05/24 08/05/24 15:55 20:00 WBC 7.5 RBC 4.78 Hgb 14.8 Hct 42.7 MCV 89.3 MCH 31.0 MCHC 34.7 RDW Std Deviation 41.2 RDW Coeff of Gisela 12.5 Plt Count 230 MPV 10.2 Immature Gran % (Auto) 0.400 Neut % (Auto) 91.4 H Lymph % (Auto) 4.1 L [place] % (Auto) 3.7 Eos % (Auto) 0.0 Baso % (Auto) 0.4 Absolute Neuts (auto) 6.9 Absolute Lymphs (auto) 0.31 L Nucleated RBC % 0 Sodium 138 Potassium 3.8 Chloride 104 Carbon Dioxide 17.5 L Anion Gap 17 H BUN 18 Creatinine 0.80 Est GFR (MDRD) Non-Af 85 BUN/Creatinine Ratio 22.3 H Glucose 122 H Calcium 9.6 Total Bilirubin 0.48 AST 27 ALT 19 Alkaline Phosphatase 60 Total Protein 7.5 Albumin 4.5 Globulin 3.0 Albumin/Globulin Ratio 1.5 Lipase 18 Urine Color Yellow Urine Clarity Clear Urine pH 5.0 Ur Specific [place] 1.015 Urine Protein 30 H Urine Glucose (UA) Normal Urine Ketones 50 H Urine Occult Blood 50 H Urine Nitrite Negative Urine Bilirubin Negative Urine Urobilinogen Normal Ur Leukocyte Esterase Negative Urine RBC 0-5 SEEN Urine WBC 0-5 SEEN Ur Squamous Epith Cells 0 SEEN Urine Bacteria 0 SEEN Urine Mucus 0 SEEN Radiography Diagnostic Testing: Clinical Impression(s) from Imaging Studies Abdomen/Pelvis CT 08/05/24 17:53 IMPRESSION: 1. No acute abnormality in the abdomen and pelvis. 2. Bilateral pelvic venous collaterals with prominent bilateral gonadal veins which can be seen in pelvic venous disease due to pelvic venous insufficiency. 3. Hepatic steatosis 4. Hepatic cysts One or more dose reduction techniques were used (e.g., Automated exposure control, adjustment of the mA and/or kV according to patient size, use of iterative reconstruction technique). Reading [facility] Discharge Plan Triage Chief Complaint: Abd Pain Other Complaint: Nausea/Vomiting/Diarrhea ED Provider: Jake Gil Dx/Rx/DC Orders Prescriptions: No Action losartan 50 mg tablet 50 mg PO DAILY pantoprazole 40 mg tablet,delayed release (DR/EC) 40 mg PO DAILY cholecalciferol (vitamin D3) 125 mcg (5,000 unit) capsule 125 mcg PO DAILY Prempro 0.625-2.5 mg tablet 1 tab PO QDAY Primary Care Provider: Neena Pritchett NP Referrals: Neena Pritchett NP, [employer]IST-[employer] [Primary Care Provider] - Print Language: Upper Sorbian
--- NOTE | 2024-08-05 17:53 | CT_ITS ---
PROCEDURE: ABDOMEN/PELVIS W IV CONT ONLY REASON FOR EXAM: Diffuse abdominal pain TECHNIQUE: Abdomen and pelvis CT with intravenous contrast. COMPARISON: None. FINDINGS: Lung bases: Clear Liver: Diffuse fatty infiltration. Multiple hypodense masses in the liver with the largest in the right lobe measuring 14 mm. Gallbladder: Surgically absent. Spleen: Normal size. Pancreas: Unremarkable. Adrenals: Unremarkable. Kidneys: Normal renal sizes. No hydronephrosis. Bladder: Unremarkable. Reproductive Organs: Normal uterine size and contour. Ovaries are unremarkable. Periuterine venous collaterals noted. Bowel: Unremarkable. Appendix: The appendix is not identified. There is no inflammatory process identified in the right lower quadrant to suggest appendicitis. Lymph nodes: No suspicious lymph node enlargement. Vasculature: The abdominal aorta and IVC are normal. There are multiple pelvic varices and prominent bilateral gonadal veins. Peritoneum / Retroperitoneum: No ascites. No free air. Bones: Unremarkable. CT/Abdomen/Pelvis W IV Cont ONLY IMPRESSION: 1. No acute abnormality in the abdomen and pelvis. 2. Bilateral pelvic venous collaterals with prominent bilateral gonadal veins which can be seen in pelvic venous disease due to pelvic venous insufficiency. 3. Hepatic steatosis 4. Hepatic cysts One or more dose reduction techniques were used (e.g., Automated exposure contr ol, adjustment of the mA and/or kV according to patient size, use of iterative reconstruction technique). Reading Location: [facility]
[2024-08-05] MEDS: 0.9% Normal Saline (1000mL) 1,000 ML 999 ML IV (18:04)
[2024-08-05] MEDS: Ondansetron 4 MG/2 ML Vial IV (18:04)
[2024-08-05] MEDS: Ketorolac 15 MG/ML Vial IV (18:05)
[2024-08-05 18:59] LABS: Anion Gap 17 (5-15); Calcium,Total 9.6 mg/dL (7.6-11.0); Carbon Dioxide 17.5 mmol/L (21.0-32.0); Chloride 104 mmol/L (98-108); Potassium 3.8 mmol/L (3.3-5.1); Sodium Level 138 mmol/L (133-145)
[2024-08-05 19:00] VITALS: BP 124/84; PULSE 70; RESP 16; O2SAT 98
[2024-08-05 20:08] LABS: Bacteria 0 SEEN /hpf (None Seen); Mucous, Urine 0 SEEN /hpf (<or=2+); Squamous Epithelial Cells - UA 0 SEEN /hpf (5-10)
[2024-08-05 20:11] LABS: Color, Urine Yellow (Yellow); Glucose, Dipstick Normal (Normal); Ketone-Dipstick 50 mg/dl (Negative); Leukocyte Esterase-Dipstick Negative /ul (Negative); Nitrite-Dipstick Negative (Negative); Occult Blood-Urine 50 /ul (Negative); Protein-Dipstick 30 mg/dl (Negative); Specific Gravity, Urine 1.015 (1.002-1.030); Urine Bilirubin Dipstick Negative (Negative); Urine Clarity Clear (Clear); Urine Urobilinogen Normal (Normal)
[2024-08-05 20:55] LABS: Red Blood Cells-Urine 0-5 SEEN /hpf (0-5); White Blood Cells 0-5 SEEN /hpf (0-5)
[2024-08-05 21:00] VITALS: BP 118/80; PULSE 68; RESP 12; TEMP 36.8; O2SAT 100
== END 2024-08-05 21:23 | disposition home or self-care (01) ==
PROVIDERS: Emergency Provider Emergency Medicine; PCP Nurse Practitioner Family; Visit Provider Emergency Medicine
DX: A08.4 Viral intestinal infection, unspecified (principal)
CPT/HCPCS: 74177; 80053; 81001; 83690; 85025; 96361; 96374; 96375; 99282; Q9967; A4216; J2405

== ENCOUNTER 2024-11-02 07:36 | Emergency (ER) | payer BC, SELFPAY ==
[2024-11-02 07:38] VITALS: BP 141/102; PULSE 115; RESP 16; TEMP 37.2; O2SAT 97
[2024-11-02 07:40] VITALS: BMI 25.4
[2024-11-02 08:13] VITALS: BP 134/78; PULSE 98; RESP 18; TEMP 37.2; O2SAT 98
--- NOTE | 2024-11-02 08:13 | RAD_ITS ---
PROCEDURE: CHEST PA AND LATERAL 11/02/2024 REASON FOR EXAM: COUGH TECHNIQUE: Frontal and lateral views of the chest. COMPARISON: None FINDINGS: No focal consolidations. No pleural effusion or pneumothorax. No acute fractures. Cardiac silhouette is unremarkable. RAD/Chest PA and Lateral IMPRESSION: No focal consolidations. Reading Location: [id number]
--- NOTE | 2024-11-02 08:17 | EX.ED.DYSGE1 ---
HPI History of Present Illness Chief Complaint: General Illness Narrative Narrative: Chief complaint and HPI: Cold-like symptoms. 59-year-old female recently traveled to [place] in which she developed cold-like symptoms and a fever. States that she had to travel home with her symptoms. Symptoms consist of fever that resolved on Monday. Intermittent body aches and productive cough. Patient states she went to work today and felt lightheaded which is why she presents. Associated symptom is fatigue, general malaise, congestion, mild sore throat. She denies any headache, neck pain, shortness of breath, chest pain, abdominal pain, nausea, vomiting, diarrhea, dysuria. Has been taking OTC medications for the cough and symptoms. Has not had any Tylenol or Motrin today. Review of systems: See HPI Medications: As listed on the chart Allergies: As listed on the chart PFSH: Per chart Vital signs: As listed on the chart. Reviewed. Physical exam: Gen: A&O x3, NAD Head: Normocephalic, atraumatic Eyes: No sclera icterus, conjunctiva clear, PERRL, EOMI ENT: TMs clear BL, moist mucous membranes, posterior oropharynx unremarkable, uvula midline, tonsils not enlarged, no tonsillar exudates, no sinus tenderness Neck: Trachea midline, No JVD, Full ROM, No meningismus CV: RRR, no murmurs, no peripheral edema Resp: Lungs CTA BL, no w/r/c, + productive cough GI: Abd soft, non-distended, non-tender, no r/r/g Musc: Full ROM, no deformity Skin: Warm, dry, no rash Neuro: Alert, oriented, grossly intact, sensation intact Psych: Cooperative, appropriate mood and affect [facility] Medical History Hot flashes HTN (hypertension) Chronic GERD Vitamin D deficiency Palpitations Precordial pain Hiatal hernia Pericardial effusion Essential (primary) hypertension Seasonal allergies Back pain Difficulty balancing Home Medications ?Medication ?Instructions ?Recorded ?Last Taken ?Type cholecalciferol (vitamin D3) 125 125 mcg PO DAILY 04/14/22 11/02/24 History mcg (5,000 unit) capsule pantoprazole 40 mg tablet,delayed 40 mg PO DAILY 04/14/22 11/02/24 History release conj estrogen-medroxyprogesterone 1 tab PO QDAY 10/20/23 11/02/24 History 0.625 mg-2.5 mg tablet (Prempro) acetaminophen 500 mg tablet 1,000 mg PO Q6H PRN fever or pain 11/02/24 11/01/24 History azithromycin 250 mg tablet See Rx Instructions PO .COMPLEX #6 11/02/24 Unknown Rx (Zithromax Z-Frankie) tabs ibuprofen 200 mg tablet (Advil) 400 mg PO Q6H PRN fever or pain 11/02/24 11/01/24 History losartan 25 mg tablet 25 mg PO DAILY 11/02/24 11/02/24 History multivitamin (Daily Multi-Vitamin 1 tab PO DAILY 11/02/24 11/02/24 History tablet) omega-3 1,050 hs-kzx-dyq-dpa-fish 3 cap PO DAILY dry eye 11/02/24 11/02/24 History oil 1,200 mg capsule ([place]-3 2100) Allergy/AdvReac Type Severity Reaction Status Date / Time morphine Allergy Intermediate Other Verified 11/02/24 07:37 Benzodiazepines AdvReac HYPERSENSIT Verified 11/02/24 07:37 IVITY Opioids - Morphine Analogues AdvReac HYPERSENSIT Verified 11/02/24 07:37 (narcotics) IVITY Family History Mother TIA (transient ischemic attack) Arthritis Other CAD (coronary artery disease) Hypertension Surgical History History of bilateral carpal tunnel release Hx of foot surgery Hx of section History of tubal ligation History of exploratory laparotomy Hx of appendectomy History of laparoscopic cholecystectomy Social History Smoking Status: Unknown if ever smoked alcohol intake: current alcohol intake frequency: a few times a month Alcohol type: wine substance use type: does not use caffeine: Yes Type: carbonated beverages and coffee Number of servings: 2 EXAM Physical Exam Const Vital Signs: 11/02/24 07:37 11/02/24 07:38 11/02/24 08:13 Temperature 98.9 F 98.9 F Temperature Source Oral Oral Pulse Rate 115 H 98 Respiratory Rate 16 18 Respiratory Effort Normal Respiratory Pattern Normal Blood Pressure 141/102 H 134/78 H Blood Pressure Mean 115 96 Pulse Ox 97 98 Oxygen Delivery Method Room Air Room Air 11/02/24 08:33 11/02/24 09:00 Temperature 98.6 F Temperature Source Oral Pulse Rate 114 H 89 Respiratory Rate 20 H 18 Respiratory Effort Respiratory Pattern Tachypnea Blood Pressure 129/78 H Blood Pressure Mean 95 Pulse Ox 98 Oxygen Delivery Method Room Air MDM MDM MDM Narrative Medical decision making narrative: 59-year-old female recently traveled to [place] in which she developed cold-like symptoms and a fever. Has been afebrile since Monday. Symptoms consist of productive cough, fatigue, congestion, mild sore throat. [place] lightheaded today which is why she presents to the emergency department. Differential diagnosis includes but is not limited to viral illness, pneumonia, bronchitis, electrolyte abnormality, dehydration. NS bolus, Toradol, DuoNeb ordered for symptoms. Patient offered COVID, flu, RSV testing and declined. Basic labs ordered with chest x-ray. CBC without leukocytosis or anemia. CMP unremarkable without significant electrolyte abnormality or ROSEMARY. Chest x-ray was personally reviewed interpreted by hi, ED physician. No pneumonia, cardiomegaly, effusion, pneumothorax. Radiology in agreement. Patient symptoms are likely secondary to bronchitis. Given that this has been ongoing for over a week we will place on Z-Frankie. Follow-up with PCP. Patient had no wheezing here in the emergency department. She states she has not been wheezing at home therefore an albuterol inhaler given. She was offered Tessalon Perles although states she is using it at home and does not feel that it is working. Recommended [id number] Mucinex. Return precautions explained. She confirmed understanding the plan. Patient stable to discharge home. Impression: 1. Bronchitis 2. Mild dehydration Lab Data Labs: Laboratory Results - last 24 hr 11/02/24 08:40 WBC 5.3 RBC 4.51 Hgb 13.8 Hct 40.6 MCV 90.0 MCH 30.6 MCHC 34.0 RDW Std Deviation 43.6 RDW Coeff of Gisela 13.1 Plt Count 163 MPV 10.6 Immature Gran % (Auto) 0.200 Neut % (Auto) 61.1 Lymph % (Auto) 29.1 [place] % (Auto) 8.1 Eos % (Auto) 1.1 Baso % (Auto) 0.4 Absolute Neuts (auto) 3.2 Absolute Lymphs (auto) 1.54 Nucleated RBC % 0 Sodium 139 Potassium 3.8 Chloride 102 Carbon Dioxide 24.1 Anion Gap 13 BUN 9 Creatinine 0.95 Estim Creat Clear Calc 56.39 Est GFR (MDRD) Non-Af 70 BUN/Creatinine Ratio 9.8 L Glucose 95 Calcium 9.6 Total Bilirubin 0.28 AST 28 ALT 17 Alkaline Phosphatase 70 Total Protein 7.0 Albumin 4.2 Globulin 2.8 Albumin/Globulin Ratio 1.5 Radiography Diagnostic Testing: Clinical Impression(s) from Imaging Studies Chest X-Ray 11/02/24 08:13 IMPRESSION: No focal consolidations. Reading Location: [facility] Discharge Plan Triage Chief Complaint: General Illness ED Provider: Andres Shipman Dx/Rx/DC Orders Clinical Impression: Bronchitis Instructions: Acute Bronchitis Prescriptions: New azithromycin [Zithromax Z-Frankie] 250 mg tablet See Rx Instructions .ROUTE .COMPLEX Qty: 6 0RF Rx Instructions: For 250 mg dose pack: take 500 mg today (day 1), then 250 mg for 4 days (days 2-5) No Action pantoprazole 40 mg tablet,delayed release (DR/EC) 40 mg PO DAILY cholecalciferol (vitamin D3) 125 mcg (5,000 unit) capsule 125 mcg PO DAILY Prempro 0.625-2.5 mg tablet 1 tab PO QDAY losartan 25 mg tablet 25 mg PO DAILY multivitamin [Daily Multi-Vitamin] Tablet 1 tab PO DAILY [place]-3 2100 1,050-1,200 mg capsule 3 cap PO DAILY acetaminophen 500 mg tablet 1,000 mg PO Q6H PRN (Reason: fever or pain) ibuprofen [Advil] 200 mg tablet 400 mg PO Q6H PRN (Reason: fever or pain) Primary Care Provider: Neena Pritchett NP Referrals: Neena Pritchett NP, [employer] [Primary Care Provider] - 3-5 Days Activity Restrictions/Additional Instructions: You received Toradol here in the emergency department. No ibuprofen for 8 hours. Okay for Tylenol ibuprofen as needed. Recommend [id number]-[id number] Mucinex. Follow-up with PCP. Take all of your antibiotics. Return back to the ED if symptoms change or worsen. Print Language: Nepali Disposition Disposition: Home, Self Care
[2024-11-02] MEDS: 0.9% Normal Saline (1000mL) 1,000 ML 1000 ML IV (08:30)
[2024-11-02] MEDS: Ketorolac 15 MG/ML Vial IV (08:31)
[2024-11-02] MEDS: Ipratropium/Albuterol Sulfate 3 ML AMPUL.NEB INHALATION (08:31)
[2024-11-02 08:33] VITALS: PULSE 114; RESP 20
[2024-11-02 09:00] VITALS: BP 129/78; PULSE 89; RESP 18; TEMP 37; O2SAT 98
[2024-11-02 09:29] LABS: ALB/GLOB Ratio 1.5 RATIO (0.9-2.4); AST(SGOT) 28 U/L (<=31); Alanine Aminotransfer ALT/SGPT 17 U/L (<=34); Albumin, Serum 4.2 g/dL (3.5-5.0); Alkaline Phosphatase 70 U/L (35-104); Anion Gap 13 (5-15); BUN 9 mg/dL (4-19); BUN/Creat Ratio 9.8 RATIO (10-20); Calcium,Total 9.6 mg/dL (7.6-11.0); Carbon Dioxide 24.1 mmol/L (21.0-32.0); Chloride 102 mmol/L (98-108); Creatinine, Serum 0.95 mg/dL (0.70-1.20); EST Glomerular Filtration Rate 70 (>60); Estimated Creatinine Clearance 56.39 ml/min (50-250); Globulin 2.8 g/dL (2.2-4.2); Glucose 95 mg/dL (70-99); Potassium 3.8 mmol/L (3.3-5.1); Sodium Level 139 mmol/L (133-145); Total Bilirubin 0.28 mg/dL (0.00-1.30)
[2024-11-02 09:41] LABS: Absolute Lymphocyte Count 1.54 X10^3/uL (0.83-4.51); Absolute Neutrophil Count 3.2 X10^3/uL (2.0-7.7); Basophil# 0.02 X10^3/uL; Basophil% 0.4 % (0-1); Eosinophil# 0.06 X10^3/uL; Eosinophils% 1.1 % (0-5); Hematocrit 40.6 % (37-47); Hemoglobin 13.8 g/dL (12.0-15.0); Lymphocyte # 1.54 X10^3/ul (0.83-4.51); Lymphocyte % 29.1 % (19-41); Mean Corpuscular Hgb 30.6 pg (27.0-32.0); Mean Platelet Vol. 10.6 fl (6.2-12.0); Monocyte# 0.43 X10^3/uL; Monocyte% 8.1 % (0-10); NRBC Flagged by Analyzer 0 % (0-5); Neutrophil # 3.24 X10^3/uL (2.7-7.7); Neutrophil % 61.1 % (47-70); Platelet Count 163 K/mm3 (150-450); RBC Distribution Width CV 13.1 % (11.6-14.6); RBC Distribution Width SD 43.6 fl (35.1-43.9); Red Blood Count 4.51 M/mm3 (4.2-5.4); White Blood Count 5.3 K/mm3 (4.4-11.0)
[2024-11-02 09:55] VITALS: BP 124/66; PULSE 89; RESP 16; TEMP 37.1; O2SAT 99
== END 2024-11-02 09:58 | disposition home or self-care (01) ==
PROVIDERS: Emergency Provider Surgery; PCP Nurse Practitioner Family; Visit Provider Surgery
DX: J40 Bronchitis, not specified as acute or chronic (principal); E86.0 Dehydration; I10 Essential (primary) hypertension; K21.9 Gastro-esophageal reflux disease without esophagitis; Z79.899 Other long term (current) drug therapy
CPT/HCPCS: 71046; 80053; 85025; 94640; 96374; 99285; A4216

== ENCOUNTER → 2024-11-20 | Outpatient (CLI) | payer BC, SELFPAY ==
[2024-11-20 16:20] LABS: Hematocrit 39.3 % (37-47); Hemoglobin 13.1 g/dL (12.0-15.0); Mean Corp Hgb Conc 33.3 g/dL (32-36); Mean Corpuscular Hgb 30.3 pg (27.0-32.0); Mean Corpuscular Volume 90.8 fL (81-99); Mean Platelet Vol. 10.3 fl (6.2-12.0); Platelet Count 238 K/mm3 (150-450); RBC Distribution Width CV 12.9 % (11.6-14.6); RBC Distribution Width SD 42.6 fl (35.1-43.9); Red Blood Count 4.33 M/mm3 (4.2-5.4); White Blood Count 4.9 K/mm3 (4.4-11.0)
[2024-11-20 17:24] LABS: ALB/GLOB Ratio 1.7 RATIO (0.9-2.4); AST(SGOT) 20 U/L (<=31); Alanine Aminotransfer ALT/SGPT 14 U/L (<=34); Albumin, Serum 4.5 g/dL (3.5-5.0); Alkaline Phosphatase 73 U/L (35-104); Anion Gap 12 (5-15); BUN 18 mg/dL (4-19); BUN/Creat Ratio 18.5 RATIO (10-20); Calcium,Total 9.5 mg/dL (7.6-11.0); Chloride 104 mmol/L (98-108); Creatinine, Serum 0.95 mg/dL (0.70-1.20); EST Glomerular Filtration Rate 70 (>60); Globulin 2.7 g/dL (2.2-4.2); Glucose 93 mg/dL (70-99); Potassium 3.8 mmol/L (3.3-5.1); Protein, Total 7.2 g/dL (5.9-8.4); Sodium Level 139 mmol/L (133-145); Total Bilirubin 0.19 mg/dL (0.00-1.30)
[2024-11-27 22:07] LABS: CMV Antibody IgG > 10.00 U/mL (0.00-0.59); EBV Acute VCA IgM < 36.0 U/mL (0.0-35.9); EBV Nuclear Antigen IgG 89.3 U/mL (0.0-17.9); Lyme IgG P18 Ab Absent (.); Lyme IgG P23 Ab Absent (.); Lyme IgG P28 Ab Absent (.); Lyme IgG P30 Ab Absent (.); Lyme IgG P39 Ab Absent (.); Lyme IgG P41 Ab Present (.); Lyme IgG P45 Ab Absent (.); Lyme IgG P58 Ab Absent (.); Lyme IgG P66 Ab Absent (.); Lyme IgG P93 Ab Absent (.); Lyme IgG WB Interpretation Negative (Negative); Lyme IgM P23 Ab Absent (.); Lyme IgM P39 Ab Absent (.); Lyme IgM P41 Ab Absent (.); Lyme IgM WB Interpretation Negative (Negative)
== END | disposition home or self-care (01) ==
LOC: LAB 14:40
PROVIDERS: PCP Nurse Practitioner Family; Referring Provider Nurse Practitioner Family; Visit Provider Nurse Practitioner Family
DX: R19.7 Diarrhea, unspecified (principal); R53.83 Other fatigue
CPT/HCPCS: 36415; 80053; 84439; 84443; 85027; 86617; 86644; 86664; 86665

== ENCOUNTER → 2025-04-05 | Outpatient (CLI) | payer BC, SELFPAY ==
[2025-04-05 08:56] LABS: AST(SGOT) 21 U/L (<=31); Alanine Aminotransfer ALT/SGPT 14 U/L (<=34); Albumin, Serum 4.6 g/dL (3.5-5.0); Alkaline Phosphatase 63 U/L (35-104); Anion Gap 11 (5-15); BUN 18 mg/dL (4-19); BUN/Creat Ratio 17.8 RATIO (10-20); Calcium,Total 9.6 mg/dL (7.6-11.0); Carbon Dioxide 23.9 mmol/L (21.0-32.0); Chloride 104 mmol/L (98-108); Cholesterol 244 mg/dL (<=200); Globulin 2.9 g/dL (2.2-4.2); Glucose 107 mg/dL (70-99); Low Density Lipoprotein Calc. 149 mg/dL; Potassium 4.1 mmol/L (3.3-5.1); Triglycerides 77 mg/dL; Very Low Density Lipoprotein 15 mg/dL (5-40); Vitamin D,25 Hydroxy 91.6 ng/mL (30-100); cholesterol:hdl ratio screen 2.98
== END | disposition home or self-care (01) ==
LOC: LAB 07:26
PROVIDERS: PCP Nurse Practitioner Family; Referring Provider Nurse Practitioner Family; Visit Provider Nurse Practitioner Family
DX: R19.7 Diarrhea, unspecified (principal); R53.83 Other fatigue; E78.5 Hyperlipidemia, unspecified; E55.9 Vitamin D deficiency, unspecified; Z13.6 Encounter for screening for cardiovascular disorders; Z13.1 Encounter for screening for diabetes mellitus
CPT/HCPCS: 36415; 80053; 80061; 82306; 83036